=== PATIENT | male | born 2000 | race African-American/Black ===

== ENCOUNTER 2024-07-03 02:20 | Emergency (ER) | payer SELFPAY ==
[2024-07-03 02:22] VITALS: BP 130/85
[2024-07-03 02:53] LABS: COVID-19 Antigen Negative (Negative)
--- NOTE | 2024-07-03 02:56 | ED.GENMED ---
History of Present Illness
<DEYVI Foley - Last Filed: 07/03/24 05:06>
General
Chief Complaint: Abdominal Symptoms
Source: patient and family
Exam Limitations: none
Time Seen by Provider: 07/03/24 02:44
History of Present Illness
History of Present Illness:
Pt is a 24 y/o M who presents with complaints of cough and shortness of breath x2 days. The pt stated that his symptoms started 2 days ago when he ate mac and cheese and since then he has been feeling weakness and had 3 episodes of vomiting. The
weakness is getting worse. The cough is productive with yellow sputum and is associated with a sore throat, shortness of breath, dyspnea, and fever. He has been able to tolerate foods and liquids. The pt notes that he had a similar episode of
symptoms 8 months ago and was treated at [facility]. Denies diarrhea, chest pain, lightheadedness, hemoptysis, bloody sputum.
Past History
<DEYVI Foley - Last Filed: 07/03/24 05:06>
Past History
ED Past Medical History: HTN and Psychiatric
ED Past Surgical History: Orthopedic (Humerus fx)
Social History
Tobacco: Smoker
Alcohol: Occasional
Drug: Marijuana and Other (LSD)
Family History
Family History: Adopted
Review of Systems
<DEYVI Foley - Last Filed: 07/03/24 05:06>
Review of Systems
All Other Systems: ROS reviewed and negative except as documented in HPI and ROS
Constitutional: Reports fever and fatigue
EENT: Reports sore throat
Respiratory: Reports cough and trouble breathing
Cardiac: Reports no symptoms
ABD/GI: Reports vomiting
: Reports no symptoms
Musculoskeletal: Reports no symptoms
Skin: Reports no symptoms
Neurological: Reports weakness
Endocrine: Reports no symptoms
Hematologic/Lymphatic: Reports no symptoms
Psychiatric: Reports no symptoms
Phy Exam
<DEYVI Foley - Last Filed: 07/03/24 05:06>
General Physical Exam
General Presentation: mild distress
General age: appears stated age
General Skin: warm and dry
General Habitus: normal
General Mental: alert
General Hydration: appears well hydrated
ENT Exam
ENT Exam: neck supple
Eye Exam
Eye Exam: cornea clear and conjunctiva normal
Cardiovascular Exam
Cardiovascular Exam: regular rate/rhythm
Pulmonary Exam
Pulmonary Exam: chest non tender, decreased breath sounds and generalized wheezing
Respiratory Effort: tachypnea
Cough: productive cough
Breath Sounds: Wheeze: generalized and Rhonchi: generalized
Gastrointestinal Exam
Gastrointestinal Exam: non tender and non distended
Neurological Exam
Neurological Exam: alert, oriented x3, no motor deficits and no sensory deficits
Musculoskeletal Exam
Musculoskeletal Exam: full ROM and neuro vasc intact
Skin Exam
Skin Exam: normal color and warm/dry
Psychiatric Exam
Psychiatric Exam: normal mood/affect
Course
<DEYVI oFley - Last Filed: 07/03/24 05:06>
Orders/Labs/Results
Orders:
Orders
07/03/24 02:36
COVID-19 Antigen Urgent
Source: Nasal Swab
07/03/24 02:58
CR Abdomen - 1 View Urgent
Comment:
Reason For Exam: abdominal pain
CR Chest - 2 Views Urgent
Comment:
Reason For Exam: shortness of breath
07/03/24 03:13
Complete Blood Count/With Diff Urgent
Comprehensive Metabolic Panel Urgent
Lipase Urgent
07/03/24 04:17
Acetaminophen [Tylenol] 650 mg .ROUTE .STK-MED ONE
07/03/24 04:18
Acetaminophen [Tylenol] 650 mg PO NOW STA
07/03/24 04:25
Ipratropium/Albuterol Sulfate [Duoneb] 3 ml INH R NOW ONE
07/03/24 05:11
Crisis Consult Urgent
Reason for Consult: ams, flight of ideas
Abnormal Lab Results
07/03/24
03:13
MCV 78.8 L fL
(80.0-94.0)
MPV 10.9 H fL
(7.4-10.4)
07/03/24 03:13
07/03/24 03:13
Vital Signs
Initial and Last Documented VS:
Initial Vital Signs
Temp Pulse Resp BP Pulse Ox
98.1 F 89 18 130/85 98
07/03/24 02:22 07/03/24 02:22 07/03/24 02:22 07/03/24 02:22 07/03/24 02:22
Last Documented Vital Signs
Temp Pulse Resp BP Pulse Ox
98.1 F 89 18 147/77 97
07/03/24 02:22 07/03/24 02:22 07/03/24 02:22 07/03/24 05:00 07/03/24 05:00
<Stevie Saez, DO - Last Filed: 07/03/24 06:09>
Orders/Labs/Results
Orders:
Orders
07/03/24 02:36
COVID-19 Antigen Urgent
Source: Nasal Swab
07/03/24 02:58
CR Abdomen - 1 View Urgent
Comment:
Reason For Exam: abdominal pain
CR Chest - 2 Views Urgent
Comment:
Reason For Exam: shortness of breath
07/03/24 03:13
Complete Blood Count/With Diff Urgent
Comprehensive Metabolic Panel Urgent
Lipase Urgent
07/03/24 04:17
Acetaminophen [Tylenol] 650 mg .ROUTE .STK-MED ONE
07/03/24 04:18
Acetaminophen [Tylenol] 650 mg PO NOW STA
07/03/24 04:25
Ipratropium/Albuterol Sulfate [Duoneb] 3 ml INH R NOW ONE
07/03/24 05:11
Crisis Consult Urgent
Reason for Consult: ams, flight of ideas
Abnormal Lab Results
07/03/24
03:13
MCV 78.8 L fL
(80.0-94.0)
MPV 10.9 H fL
(7.4-10.4)
07/03/24 03:13
07/03/24 03:13
Vital Signs
Initial and Last Documented VS:
Initial Vital Signs
Temp Pulse Resp BP Pulse Ox
98.1 F 89 18 130/85 98
07/03/24 02:22 07/03/24 02:22 07/03/24 02:22 07/03/24 02:22 07/03/24 02:22
Last Documented Vital Signs
Temp Pulse Resp BP Pulse Ox
98.1 F 89 18 147/77 97
07/03/24 02:22 07/03/24 02:22 07/03/24 02:22 07/03/24 05:00 07/03/24 05:00
<DEYVI Foley - Last Filed: 07/03/24 05:06>
MDM/Problems Addressed
Differential Diagnosis Includes:
Pneumonia
Acute Bronchitis
<DEYVI Foley - Last Filed: 07/03/24 05:06>
*Critical Care Note
Total Time (30-74mins, 75-104mins- exclusive of procedures): Not Applicable
<DEYVI Folye - Last Filed: 07/03/24 05:06>
Update Note
Update Note:
Attempted to get records from [facility]. Patient was uncooperative.
07/03/24 0500: Pt reported improvement with Ipratropium/Albuterol Sulfate and Acetaminophen. However, he still feels weak.
<Stevie Saez DO - Last Filed: 07/03/24 06:09>
Update Note
Update Note:
Attempted to get records from [facility]. Patient was uncooperative.
07/03/24 0500: Pt reported improvement with Ipratropium/Albuterol Sulfate and Acetaminophen. However, he still feels weak.
07/03/2024 0603 AM: Patient was seen by crisis. He gave him no reason to file a petition to keep him in the emergency department. He denied suicidal homicidal ideation, intent, or plan. They felt that living at his mom's household, she will get
him help should he need it. They are giving him outpatient resources. Patient has no further questions at this time.
ED Attending Note
<DEYVI Foley - Last Filed: 07/03/24 05:06>
-
Portions of this chart may have been created with voice recognition software.� Occasional wrong word or��sound alike� substitutions may have occurred due to the inherent limitations of voice recognition software.
Discharge Plan
Departure
Patient Disposition: Home (Routine Discharge)
Date of Disposition: 07/03/24
Time of Disposition: 06:06
Patient with high blood pressure during this ER visit?: Yes
Condition: Good
Discharge Problem:
Acute dyspnea, Anxiety
Instructions: Anxiety, Adult ED, Abdominal Pain, BLOOD PRESSURE
Prescriptions:
New
albuterol sulfate 90 mcg/actuation aero powdr breath act w/sensor
1 inh inhalation Q6H PRN (Reason: shortness of breath or wheezing) Qty: 1 0RF
Referrals:
[facility] [Active] -
NONE,* [Family Provider] -
Activity Restrictions/Additional Instructions:
It was a pleasure meeting you and taking part in your care. We hope for your continued healing and wellness.
Please read discharge instructions in their entirety. However, they are for general education and may not describe your exact diagnosis at discharge. Information on your ER visit and medical conditions were discussed with you along with appropriate
follow up information...
If indicated, please take your medications as instructed and indicated on discharge paperwork.
Please schedule a follow up appointment as directed. Call to schedule an appointment
Please return to the emergency department with ANY change in, persisting, or worsening of symptoms. If any of your symptoms do not improve, or persist, or become more severe within 6-12 hours, please return to the emergency department for further
care.
Please return to the emergency department if you develop a headache, neck pain/stiffness, fever greater than 100.4F, chest pain, shortness of breath, persistent nausea, vomiting, slurred speech, difficulty walking, numbness/tingling, weakness, signs
of infection or any other symptoms that are worrisome to you.
If you have any questions or concerns please do not hesitate to call the Hospital at
Interventions
Interventions:
*Risk Screen - Suicide Last Done: 07/03/24 02:22
*General Assessment Last Done: 07/03/24 02:32
*Neglect/Abuse Screening Last Done: 07/03/24 02:32
*ED COVID-19 Vaccine History Last Done: 07/03/24 02:43
QR-Gumwhg-Bkblvckzbk Assessment Last Done: 07/03/24 03:06
Discharge Date and Time
Print Language: WOLOF
[2024-07-03 03:06] VITALS: BMI 19.8
[2024-07-03 03:14] VITALS: BP 137/77
[2024-07-03 03:23] LABS: % Basophils 0.3 % (0-2); % Eosinophils 2.1 % (0-6); % Immature Granulocytes 0.1 % (0-0.5); % Lymphocytes 21.7 % (20.5-51.1); % Monocytes 6.9 % (1.7-9.3); % Neutrophils 68.9 % (42.2-75.2); Absolute Eosinophils 0.2 10^3/uL (0-0.7); Absolute Lymphocytes 1.5 10^3/uL (1.2-3.4); Absolute Monocytes 0.5 10^3/uL (0.1-0.6); Absolute Neutrophils 4.9 10^3/uL (1.4-6.5); Hematocrit 40.1 % (39.0-52.0); Hemoglobin 14.1 g/dL (13.0-18.0); Mean Corp Hgb Conc. 35.2 g/dL (33.0-37.0); Mean Corpuscular Hgb 27.7 pg (27.0-31.0); Mean Corpuscular Volume 78.8 fL (80.0-94.0); Mean Platelet Volume 10.9 fL (7.4-10.4); Nucleated Red Blood Cells % 0 % (-); Platelet Count 182 10^3/uL (130-400); Red Blood Cell Count 5.09 10^6/uL (4.70-6.10); Red Cell Dist. Width 13.2 % (11.5-14.5); White Blood Cell Count 7.1 10^3/uL (4.8-10.8)
[2024-07-03 03:45] LABS: ALT (SGPT) 27 U/L (0-50); AST (SGOT) 38 U/L (17-59); Albumin 4.6 g/dl (3.5-5.0); Alkaline Phosphatase 78 U/L (38-126); Blood Urea Nitrogen 19 mg/dl (9-20); Calcium 9.7 mg/dl (8.4-10.2); Carbon Dioxide 24 mmol/L (22-30); Chloride 105 mmol/L (98-107); Estimated Creatinine Clearance 123 ml/min; Glucose 99 mg/dl (70-99); Lipase 104 U/L (23-300); Sodium 142 mmol/L (135-145); Total Bilirubin 0.5 mg/dl (0.2-1.3); Total Protein 7.1 g/dl (6.3-8.2); eGFR > 60.00
[2024-07-03 04:08] VITALS: BP 128/76
[2024-07-03 04:13] VITALS: BP 128/76
[2024-07-03] MEDS: TYLENOL 650 MG PO (04:19)
[2024-07-03] MEDS: DUONEB 3 ML INH (04:29)
[2024-07-03 05:00] VITALS: BP 147/77
== END 2024-07-03 06:12 | disposition home or self-care (01) ==
LOC: EMR 02:20
PROVIDERS: EMERGENCY PHYSICIAN Student in an Organized Health Care Education/Training Program
DX: R06.00 Dyspnea, unspecified (principal); R05.9 Cough, unspecified; R53.1 Weakness; R11.10 Vomiting, unspecified; J02.9 Acute pharyngitis, unspecified; R50.9 Fever, unspecified; R53.83 Other fatigue; R10.9 Unspecified abdominal pain; Z11.52 Encounter for screening for COVID-19; F41.9 Anxiety disorder, unspecified; I10 Essential (primary) hypertension; F17.200 Nicotine dependence, unspecified, uncomplicated; Z88.8 Allergy status to other drugs, medicaments and biological substances
CPT/HCPCS: 99284; 94640; 71046; 74018; 80053; 83690; 85025; 87811

== ENCOUNTER 2024-09-19 20:22 | Emergency (ER) | payer OTHER, SELFPAY ==
[2024-09-19 20:25] VITALS: BP 154/83
[2024-09-19 21:22] VITALS: BMI 20.7
--- NOTE | 2024-09-19 21:40 | ED.SKININJ ---
HPI-Injury
General
Chief Complaint: Ear Problem
Source: patient
Exam Limitations: none
Time Seen by Provider: 09/19/24 20:52
Nursing documentation reviewed up to this point in time: agreed with
History of Present Illness-Injury
Is this injury a work related problem?: No
Is pt an associate of [facility]?: No
Initial Injury comments:
Patient to ED with complaint of pain to right ear. He was discharged from inpatient psych facility yesterday AM. He has been unable to get his medication due to banking issues. He states he was on an antibiotic while at the psych facility and
needs to continue to take this med. He is mildly agitated. I spoke with his mother and she verifies that he has not been able to access any of his medications.
Past History
Past History
ED Past Medical History: HTN and Psychiatric
ED Past Surgical History: Orthopedic (Humerus fx)
Social History
Tobacco: Smoker
Alcohol: Occasional
Drug: Marijuana and Other (LSD)
Family History
Family History: Adopted
Review of Systems
Review of Systems
Allergies reviewed?: Yes
All Other Systems: ROS reviewed and negative except as documented in HPI and ROS
Constitutional: Reports no symptoms
EENT: Reports no symptoms
Respiratory: Reports no symptoms
Cardiac: Reports no symptoms
ABD/GI: Reports no symptoms
Musculoskeletal: Reports no symptoms
Skin: Reports other (pain and swelling to right outer ear.)
Neurological: Reports no symptoms
Psychiatric: Reports no symptoms
Phy Exam
General Physical Exam
General Presentation: well appearing and mild distress (agitated)
General age: appears stated age
General Skin: warm and dry
General Habitus: normal
General Mental: alert
General Hydration: appears well hydrated
Musculoskeletal Exam
Musculoskeletal Exam: full ROM and neuro vasc intact
Skin Exam
Skin Exam: normal color, warm/dry, no rash and other (small 'pimple' right outer ear. No drainage. Tender)
Psychiatric Exam
Psychiatric Exam: agitated
Course
Orders/Labs/Results
Orders:
Orders
09/19/24 21:35
Crisis Consult Urgent
Reason for Consult: aggitation
09/19/24 21:55
Acetaminophen [Tylenol] 650 mg .ROUTE .STK-MED ONE
Amoxicillin 875 mg/Clav 125 mg [Augmentin 875 mg/125 mg] 1 tablet .ROUTE .STK-MED ONE
09/19/24 21:56
Acetaminophen [Tylenol] 650 mg PO NOW STA
Amoxicillin 875 mg/Clav 125 mg [Augmentin 875 mg/125 mg] 1 tablet PO NOW STA
09/19/24 22:48
Quimby Carbonate Ext. Release [Eskalith ER (Extended Release)] 450 mg PO NOW STA
Quetiapine Fumarate [Seroquel] 400 mg PO NOW STA
Sertraline HCl [Zoloft] 50 mg PO NOW STA
09/19/24 22:49
Prazosin HCl [Minipress] 1 mg PO NOW STA
Vital Signs
Initial and Last Documented VS:
Initial Vital Signs
Temp Pulse Resp BP Pulse Ox
98.3 F 91 14 154/83 100
09/19/24 20:25 09/19/24 20:25 09/19/24 20:25 09/19/24 20:25 09/19/24 20:25
Last Documented Vital Signs
Temp Pulse Resp BP Pulse Ox
98.3 F 96 17 136/80 99
09/19/24 20:25 09/20/24 00:00 09/20/24 00:00 09/20/24 00:00 09/20/24 00:00
*Critical Care Note
Total Time (30-74mins, 75-104mins- exclusive of procedures): Not Applicable
Update Note
Update Note:
Patient evaluated by crisis. Able to obtain current med list. PM doses provided here. Crisis spoke with mother who will take pateint back into home, he is clear for discharge
ED Attending Note
-
Portions of this chart may have been created with voice recognition software.� Occasional wrong word or��sound alike� substitutions may have occurred due to the inherent limitations of voice recognition software.
Discharge Plan
Departure
Patient Disposition: Home (Routine Discharge)
Date of Disposition: 09/19/24
Time of Disposition: 22:50
Patient with high blood pressure during this ER visit?: No
Condition: Good
Covid-19: Not Applicable
Discharge Problem:
Abscess of external ear
Instructions: Wound Care ED
Prescriptions:
No Action
albuterol sulfate 90 mcg/actuation aero powdr breath act w/sensor
1 inh inhalation Q6H PRN (Reason: shortness of breath or wheezing) Qty: 1 0RF
Referrals:
UNKNOWN - PT NOT,INTERVIEWE [Family Provider] -
Activity Restrictions/Additional Instructions:
Follow up with your family doctor. It is important that you stay on your psychiatric medications as ordered. Please order picker from your pharmacy in the AM
Interventions
Interventions:
*Risk Screen - Suicide Last Done: 09/19/24 20:25
*General Assessment Last Done: 09/19/24 20:25
*Neglect/Abuse Screening Last Done: 09/19/24 20:25
ED- Fall Risk Assessment Last Done: 09/19/24 21:22
*ED COVID-19 Vaccine History Last Done: 09/19/24 21:22
*Nursing Disposition Last Done: 09/20/24 01:39
Discharge Date and Time
Discharge Date/Time: 09/20/24 01:40
Print Language: GERMAN
[2024-09-19] MEDS: AUGMENTIN 875 MG/125 MG 1 TABLET PO (21:57)
[2024-09-19] MEDS: TYLENOL 650 MG PO (21:57)
[2024-09-20] VITALS: BP 136/80
[2024-09-20] MEDS: ESKALITH ER (EXTENDED RELEASE) 450 MG PO (00:43)
[2024-09-20] MEDS: MINIPRESS 1 MG PO (00:43)
[2024-09-20] MEDS: ZOLOFT 50 MG PO (00:43)
[2024-09-20] MEDS: SEROQUEL 400 MG PO (00:43)
== END 2024-09-20 01:40 | disposition home or self-care (01) ==
LOC: EMR 20:22
PROVIDERS: EMERGENCY PHYSICIAN Emergency Medicine
DX: H60.01 Abscess of right external ear (principal); I10 Essential (primary) hypertension; R45.1 Restlessness and agitation; F17.200 Nicotine dependence, unspecified, uncomplicated; Z59.89 Other problems related to housing and economic circumstances
CPT/HCPCS: 99283